=== PATIENT | female | born 1995 | race Caucasian/White ===

== ENCOUNTER 2016-12-28 10:10 | Outpatient (CLI) | payer OTHER ==
[~2016-12-28] VITALS: Ht 162.6 cm; Wt 87.2 kg
[2016-12-28 10:45] VITALS: BP 149/83; PULSE 85; Ht 162.6 cm; Wt 87.2 kg
[2016-12-28] MEDS ORDERED: FERR325C PO (10:46)
[2016-12-28] MEDS ORDERED: PRENAT PO (10:46)
[2016-12-28 11:39] LABS: ADD UMIC YES; UR ASCORBIC ACID 40 mg/dL (NEGATIVE); UR BACTERIA FEW /HPF (NONE SEEN); UR BILIRUBIN (Dip) NEGATIVE (NEGATIVE); UR BLOOD (Dip) NEGATIVE (NEGATIVE); UR CLARITY CLEAR (CLEAR); UR COLOR YELLOW (YELLOW); UR GLUCOSE (Dip) NEGATIVE (NEGATIVE); UR KETONES (Dip) NEGATIVE (NEGATIVE); UR LEUKOCYTE ESTERASE (Dip) 1+ Leu/ul (NEGATIVE); UR MUCUS FEW /HPF (NONE SEEN); UR NITRITE (Dip) NEGATIVE (NEGATIVE); UR RBC 1 /HPF (0-5); UR SPECIFIC GRAVITY (Dip) 1.017 (1.003-1.030); UR SQUAMOUS EPITHELIAL CELL FEW /HPF (FEW); UR TOTAL PROTEIN (Dip) 1+ mg/dl (NEGATIVE); UR UROBILINOGEN (Dip) NEGATIVE (NEGATIVE)
--- NOTE | 2016-12-28 13:02 | RADRPT ---
PROCEDURE: OB ultrasound for biophysical profile CLINICAL INDICATION: Labor TECHNIQUE: Multiple sonographic images of the pelvis were obtained. Transabdominal view of the gr avid uterus are available for review. The images were reviewed on a PACS workstation. COMPARISON: OB ultrasound 10/18/2016 FINDINGS: breathing movement = 2/2 tone = 2/2 motion = 2/2 REMEDIOS = 2/2 REMEDIOS = 16.4 cm Single live intrauterine with cardiac activity. heart rate equals 137 beats p er minute. Presentation is cephalic. The placenta is anterior, grade II. IMPRESSION: 1. Single viable intrauterine gestation. 2. Biophysical profile = 8/8. 3. REMEDIOS = 16.4 cm. RPTAT: KK .Jose Arias MD, MD Date Time Electronically viewed and signed by .Jose Arias MD, MD on 12/28/2016 13:01 .B/
[2016-12-28] MEDS ORDERED: LACTATED RINGER'S 1,000 ML IV SCH (14:40)
[2016-12-28 14:42] LABS: BARBITURATES Negative (NEGATIVE); BENZODIAZEPINES Negative (NEGATIVE); CANNABINOIDS Negative (NEGATIVE); COCAINE Negative (NEGATIVE); OPIATES Negative (NEGATIVE)
--- NOTE | 2016-12-28 14:49 | CONS ---
Date/Time of Note Date/Time of Note DATE: 12/28/16 TIME: 14:35 Consultation Date/Type/Reason Admit Date/Time Dec 28, 2016 at 14:30 OB triage consult Reason for Consultation . This patient is a 21 years old 1 para 0 with estimated date of confinement of December 08, 2016 which makes her 38 weeks and 3 days today. She came to triage complaining of lower abdominal pain and something popped in her genital area! this morning. On examination she is a well-developed well-nourished lady at term her abdomen is soft she does have contractions heart tones normal. On pelvic exam cervix was about 1 cm dilated 70% effaced -2 station intact membranes. Her vital signs are basically within normal limits with her blood pressure first 149/83 and then 135/74, pulse rate 88, respiration 18, temperature 97.9. Laboratory Tests Test 12/28/16 10:50 Urine Color YELLOW Urine Clarity CLEAR Urine pH 7.0 Urine Specific [place] 1.017 Urine Ketones NEGATIVEmg/dL Urine Nitrite NEGATIVEmg/dL Urine Bilirubin NEGATIVEmg/dL Urine Urobilinogen NEGATIVEmg/dL Urine Leukocyte Esterase 1+[place]/ul Urine Microscopic RBC 1/HPF Urine Microscopic WBC 3/HPF Urine Squamous Epithelial Cells FEW/HPF Urine Bacteria FEW/HPF Urine Mucus FEW/HPF Urine Hemoglobin NEGATIVEmg/dL Urine Glucose NEGATIVEmg/dL Urine Total Protein 1+mg/dl Constitutional: No chills, No diaphoresis, No disoriented, No febrile, No improved, No no complaints, No other, No poor po, No requiring IVF, No requiring O2 Eyes: No discharge, No no complaints, No other, No pain, No redness, No visual change ENT: No bleeding, No congestion, No discharge, No dysphagia, No no complaints, No other, No pain, No sore throat Respiratory: No cough, No no complaints, No other, No pain, No pleuritic pain, No shortness of breath, No sputum, No wheezing Cardiovascular: No chest pain, No edema, No lightheadedness, No no complaints, No orthopenea, No other, No palpitations, No paroxysmal nocturnal dyspnea Gastrointestinal: other (On examination her external genitalia appears to be normal on vaginal exam as I mentioned her cervix was 1 cm 70% effaced -2 station with intact membranes), No blood, No constipation, No decreased appetite, No diarrhea, No flatus, No nausea, No no complaints, No pain, No passing stool, No vomiting Genitourinary: No bleeding, No discharge, No dysuria, No flank pain, No hematuria, No no complaints, No other Musculoskeletal: No back pain, No bone/joint pain, No neck pain, No no complaints, No other, No restricted range of motion, No swelling Skin: No bruising, No erythema, No laceration, No no complaints, No other, No pruritis, No rash, No skin lesions Additional Comments On ultrasound study the report is single live intrauterine with cardiac activity of 137 bpm vertex presentation her biophysical profile is 8/8 with REMEDIOS of 16.4 ,Due to continuation of current fairly regular contractions we will transfer her to labor delivery room and if the contractions become truly labor we will keep her in the hospital otherwise will not discharge her home Social History Smoking Status: Never smoker Exam/Review of Systems Vital Signs Vitals Vital Signs Date Time Temp Pulse Resp B/P Pulse Ox O2 Delivery O2 Flow Rate FiO2 12/28/16 10:45 97.9 85 149/83 Results Results 24 hrs Laboratory Tests Test 12/28/16 10:50 Urine Color YELLOW Urine Clarity CLEAR Urine pH 7.0 Urine Specific [place] 1.017 Urine Ketones NEGATIVE Urine Nitrite NEGATIVE Urine Bilirubin NEGATIVE Urine Urobilinogen NEGATIVE Urine Leukocyte Esterase 1+ H Urine Microscopic RBC 1 Urine Microscopic WBC 3 Urine Squamous Epithelial Cells FEW Urine Bacteria FEW A Urine Mucus FEW A Urine Hemoglobin NEGATIVE Urine Glucose NEGATIVE Urine Total Protein 1+ H STEPHAN HUTTON MD Dec 28, 2016 14:45
[2016-12-28] MEDS ORDERED: OXYTOCIN 30 UNITS/LR 500 ML IV SCH ×2 (15:00)
[2016-12-28] MEDS ORDERED: CARBOPROST 250 MCG INJ IM PRN (15:00)
[2016-12-28] MEDS ORDERED: BUTORPHANOL 2 MG INJ IV PRN ×2 (15:00)
[2016-12-28] MEDS ORDERED: LIDOCAINE 1% (MPF) 30 ML INJ INJ PRN (15:00)
[2016-12-28] MEDS ORDERED: METHYLERGONOVINE 0.2 MG INJ IM PRN (15:00)
[2016-12-28] MEDS ORDERED: LACTATED RINGER'S 1,000 ML IV PRN (15:00)
[2016-12-28] MEDS ORDERED: OXYTOCIN 30 UNITS/LR 500 ML IV PRN (15:00)
[2016-12-28] MEDS ORDERED: MISOPROSTOL 200 MCG TAB PR PRN (15:00)
[2016-12-28 15:49] LABS: BASOPHILS % 0.2 % (0.0-2.0); EOSINOPHILS # 0.3 10^3/ul (0.0-0.5); HEMOGLOBIN 10.6 g/dl (12.0-16.0); LYMPHOCYTES # 2.2 10^3/ul (0.8-2.9); LYMPHOCYTES % 21.9 % (15.0-51.0); MEAN CORPUSCULAR HEMOGLOBIN 24.6 pg (29.0-33.0); MEAN CORPUSCULAR HGB CONC 32.1 g/dl (32.0-37.0); MEAN CORPUSCULAR VOLUME 76.6 fl (82.0-101.0); MEAN PLATELET VOLUME 11.2 fl (7.4-10.4); MONOCYTE # 0.5 10^3/ul (0.3-0.9); MONOCYTES % 5.3 % (0.0-11.0); PLATELET COUNT 241 10^3/UL (140-415); RED BLOOD COUNT 4.31 10^6/ul (4.20-5.40); RED CELL DISTRIBUTION WIDTH 16.1 % (11.5-14.5); WHITE BLOOD COUNT 10.2 10^3/ul (4.8-10.8)
[2016-12-28 16:03] LABS: INR 0.87; PROTIME 11.8 Sec (12.2-14.2); PT RATIO 0.9
[2016-12-28 16:04] LABS: PARTIAL THROMBOPLASTIN TIME 24.3 Sec (25.0-35.0)
[2016-12-28 16:09] LABS: ALANINE AMINOTRANSFERASE 23 IU/L (13-69); ALBUMIN 3.2 g/dl (3.3-4.9); ALKALINE PHOSPHATASE 204 IU/L (42-121); ANION GAP 10 (8-16); ASPARTATE AMINO TRANSFERASE 24 IU/L (15-46); BILIRUBIN,INDIRECT 0.1 mg/dl (0-1.1); BILIRUBIN,TOTAL 0.1 mg/dl (0.2-1.3); BLOOD UREA NITROGEN 5 mg/dl (7-20); CALCIUM 8.7 mg/dl (8.4-10.2); CARBON DIOXIDE 22 mmol/L (21-31); CHLORIDE 108 mmol/L (97-110); CREATININE 0.44 mg/dl (0.44-1.00); GLUCOSE 66 mg/dl (70-220); POTASSIUM 4.1 mmol/L (3.5-5.1); SODIUM 136 mmol/L (135-144); TOTAL PROTEIN 6.4 g/dl (6.1-8.1)
[2016-12-28 16:48] LABS: ALBUMIN 3.4 g/dl (3.3-4.9); BILIRUBIN,INDIRECT 0.1 mg/dl (0-1.1); BILIRUBIN,TOTAL 0.1 mg/dl (0.2-1.3); TOTAL PROTEIN 6.7 g/dl (6.1-8.1)
--- NOTE | 2016-12-28 22:18 | DS ---
Date/Time of Note Date/Time of Note DATE: 12/28/16 TIME: 22:12 Obstetrical Discharge Record Final Diagnosis Final Diagnosis: Term not delivered Other Final Diagnosis IIUP 38w3 Latent phase Complications Augmentation: No Induction: No Rupture of Membranes: No Condition on Discharge Physical Assessment Last Vitals: vss afebrile \ U.C 3-5 min Cx 1/long /-2 patient was kept almost 10hrs no cervical change nosignificant uterine activities patient requested to go home and come back Plan allowed her to home RTH prn with routine labor instructions Calf Tenderness: No Patient Condition: Stable MEL SALDAÑA MD Dec 28, 2016 22:18
== END 2016-12-28 20:50 | disposition home or self-care (01) ==
LOC: OBT 10:10 → L-D 10:10 → UNDOADMOB 14:30 → INTOOBSV 14:30 → OBT 14:32 → L-D 14:43
PROVIDERS: ATTEND Obstetrics & Gynecology
DX: O47.1 False labor at or after 37 completed weeks of gestation (principal); Z3A.38 38 weeks gestation of pregnancy
CPT/HCPCS: 76818; 80053; 80076; 80307; 81001; 84560; 85025; 85610; 85730; 86592; 86900; 86901; 87340; J7120; Z7500; G0463; J2590

== ENCOUNTER 2016-12-29 22:03 | Outpatient (CLI) | payer OTHER ==
[~2016-12-29 22:03] MED LIST: FERR325C PO; PRENAT PO
[2016-12-29 22:47] LABS: BASOPHILS % 0.1 % (0.0-2.0); EOSINOPHILS # 0.2 10^3/ul (0.0-0.5); EOSINOPHILS % 2.1 % (0.0-7.0); HEMATOCRIT 29.4 % (37.0-47.0); HEMOGLOBIN 9.3 g/dl (12.0-16.0); LYMPHOCYTES # 1.6 10^3/ul (0.8-2.9); LYMPHOCYTES % 18.7 % (15.0-51.0); MEAN CORPUSCULAR HEMOGLOBIN 24.1 pg (29.0-33.0); MEAN CORPUSCULAR HGB CONC 31.6 g/dl (32.0-37.0); MEAN CORPUSCULAR VOLUME 76.2 fl (82.0-101.0); MEAN PLATELET VOLUME 10.2 fl (7.4-10.4); MONOCYTE # 0.6 10^3/ul (0.3-0.9); MONOCYTES % 7.1 % (0.0-11.0); NEUTROPHILS % 71.4 % (39.0-77.0); PLATELET COUNT 204 10^3/UL (140-415); RED BLOOD COUNT 3.86 10^6/ul (4.20-5.40); WHITE BLOOD COUNT 8.5 10^3/ul (4.8-10.8)
[2016-12-29 23:02] LABS: INR 0.96; PROTIME 12.8 Sec (12.2-14.2)
[2016-12-29 23:03] LABS: PARTIAL THROMBOPLASTIN TIME 24.8 Sec (25.0-35.0)
[2016-12-29 23:05] LABS: ALBUMIN 2.9 g/dl (3.3-4.9); ALBUMIN/GLOBULIN RATIO 0.96; CALCIUM 8.5 mg/dl (8.4-10.2); CREATININE 0.54 mg/dl (0.44-1.00); POTASSIUM 3.7 mmol/L (3.5-5.1); TOTAL PROTEIN 5.9 g/dl (6.1-8.1); URIC ACID 5.4 mg/dl (3.1-7.9)
[2016-12-29 23:54] LABS: SCRET 0.44 mg/dl (0.44-1.00)
--- NOTE | 2016-12-30 00:34 | TRIAGE ---
OB Triage Datetime Report Generated by CPN: 12/30/2016 00:34 Datetime: 12/30/2016 00:10 Stage of : OB Triage Datetime: 12/29/2016 23:54 Labor Evaluation Frequency: 0 Monitor Mode: External Quality: Mild Pattern: Normal: <= 5 Contractions in 10 Minutes Resting Tone [place]: Relaxed Heart Rate FHR Baseline Rate: 150 Monitor Mode: External US Variability: Moderate 6-25 bpm Accelerations: 15X15 Category: Category I Datetime: 12/29/2016 23:00 Monitor Mode: External Heart Rate FHR Baseline Rate: 150 Monitor Mode: External US Datetime: 12/29/2016 22:30 Assessment Type: Triage Vaginal Bleeding: None Maternal Assessment Level of Consciousness: Fully Conscious DTR's/Clonus: DTRs 2+; No Clonus Headache: Denies Blurred Vision: No Respiratory Effort: Unlabored; Regular Rhythm; Equal Expansion Breath Sounds, Left: Clear and Equal Breath Sounds, Right: Clear and Equal Nausea/Vomiting: Denies RUQ Epigastric Pain: Denies Facial Edema: None Fall Risk Assessment History of Falling: (0) No Secondary Diagnosis: (0) No Ambulatory Aid: (0) Bedrest/Nurse Assist Gait: (0) Normal/Bedrest/Immobile Mental Status: (0) Oriented to Own Ability Monitor Mode: External Pattern: Normal: <= 5 Contractions in 10 Minutes Resting Tone [place]: Relaxed Heart Rate FHR Baseline Rate: 125 Monitor Mode: External US Variability: Moderate 6-25 bpm Accelerations: 10X10 Decelerations: None Category: Category I Pain Assessment Pain Scale: 0 Datetime: 12/29/2016 22:18 Monitor Mode: External Contraction Comments: applied Monitor Mode: External US Comments: Applied Datetime: 12/29/2016 21:18 Time of Arrival: 12/29/2016 21:18 EGA: 38.4 Arrived By: Ambulatory Arrived From: Home Chief Complaint: Brought in her urine for 24 hour Protein and Creatinine clearance Movement: Present Contractions: Denies/Absent Rupture of Membranes: Denies Vaginal Bleeding: None Vaginal Discharge: Denies Recent Sexual Intercouse: Denies Abdominal Trauma: Not Applicable Patient Complaints: None Additional Patient Complaints: Urine specimen and PIH Labs sent to lab Time Provider Notified: 12/29/2016 23:53 Datetime: 12/28/2016 20:00 Labor Evaluation Frequency: 2.5-7 Monitor Mode: External Duration (sec)2399: 60-140 Quality: Mild Pattern: Normal: <= 5 Contractions in 10 Minutes Resting Tone [place]: Relaxed Heart Rate FHR Baseline Rate: 140 Monitor Mode: External US Variability: Moderate 6-25 bpm Accelerations: 15X15 Decelerations: None Category: Category I Datetime: 12/28/2016 19:33 Assessment Type: Ongoing Assessment Maternal Assessment Level of Consciousness: Fully Conscious DTR's/Clonus: DTRs 2+; No Clonus Headache: Denies Blurred Vision: No Respiratory Effort: Unlabored; Regular Rhythm; Equal Expansion Breath Sounds, Left: Clear and Equal Breath Sounds, Right: Clear and Equal Nausea/Vomiting: Denies RUQ Epigastric Pain: Denies Lower Extremities Edema: Bilateral Lower Extremities Degree: 1+ Upper Extremities Edema: None Degree: None Facial Edema: None Pain Assessment Pain Scale: 1 Pain Presence: Intermittent Pain Type: Contraction Pain Location: Abdomen Pain Goal: 2 Pain Relief Measures: Comfort Measures Vaginal Exam Dilatation (cms): 1.0 Effacement (%): 60 Station: -2 Datetime: 12/28/2016 19:10 Labor Evaluation Frequency: 5-6 Monitor Mode: External Duration (sec)2399: 120 Quality: Mild Pattern: Normal: <= 5 Contractions in 10 Minutes Resting Tone [place]: Relaxed Heart Rate FHR Baseline Rate: 150 Monitor Mode: External US FHR Baseline Changes: No Baseline Change Variability: Moderate 6-25 bpm Decelerations: None Category: Category I Pain Assessment Pain Scale: 2 Pain Presence: Intermittent Pain Type: Contraction Pain Location: Abdomen; Back Pain Relief Measures: Comfort Measures Datetime: 12/28/2016 19:00 Assessment Type: Ongoing Assessment Datetime: 12/28/2016 18:10 Labor Evaluation Frequency: 5-6 Monitor Mode: External Duration (sec)2399: 100-120 Quality: Mild Pattern: Normal: <= 5 Contractions in 10 Minutes Resting Tone [place]: Relaxed Heart Rate FHR Baseline Rate: 140 Monitor Mode: External US FHR Baseline Changes: No Baseline Change Variability: Minimal - Undetectable to <=5 bpm Accelerations: 15X15 Decelerations: None Category: Category II Datetime: 12/28/2016 17:30 Labor Evaluation Frequency: 5-6 Monitor Mode: External Duration (sec)2399: 100-120 Quality: Mild Pattern: Normal: <= 5 Contractions in 10 Minutes Resting Tone [place]: Relaxed Heart Rate FHR Baseline Rate: 150 Monitor Mode: External US FHR Baseline Changes: No Baseline Change Variability: Moderate 6-25 bpm Accelerations: 15X15 Decelerations: None Category: Category I Pain Assessment Pain Scale: 5 Pain Presence: Intermittent Pain Type: Contraction Pain Location: Abdomen; Back Pain Relief Measures: Comfort Measures Membrane Status: Intact Datetime: 12/28/2016 16:27 Labor Evaluation Frequency: 2-4 Monitor Mode: External Duration (sec)2399: 70-120 Quality: Moderate Pattern: Normal: <= 5 Contractions in 10 Minutes Resting Tone [place]: Relaxed Heart Rate FHR Baseline Rate: 140 Monitor Mode: External US FHR Baseline Changes: No Baseline Change Variability: Moderate 6-25 bpm Accelerations: 15X15 Decelerations: None Category: Category I Pain Assessment Pain Scale: 4 Pain Presence: Intermittent Pain Type: Contraction Pain Location: Abdomen; Back Pain Relief Measures: Comfort Measures Datetime: 12/28/2016 15:46 Labor Evaluation Frequency: 2-3 Monitor Mode: External Duration (sec)2399: 80-120 Quality: Mild Pattern: Normal: <= 5 Contractions in 10 Minutes Resting Tone [place]: Relaxed Heart Rate FHR Baseline Rate: 140 Monitor Mode: External US FHR Baseline Changes: No Baseline Change Variability: Moderate 6-25 bpm Category: Category I Pain Assessment Pain Scale: 5 Pain Presence: Intermittent Pain Type: Cramping; Contraction Pain Location: Abdomen; Back Pain Relief Measures: Comfort Measures Pain Assessment Comments: HER MOTHER AND HER SISTER Datetime: 12/28/2016 14:57 Assessment Type: Admission Assessment Vaginal Bleeding: None Maternal Assessment Level of Consciousness: Fully Conscious DTR's/Clonus: DTRs 2+; No Clonus Headache: Denies Blurred Vision: No Respiratory Effort: Unlabored; Regular Rhythm; Equal Expansion Breath Sounds, Left: Clear and Equal Breath Sounds, Right: Clear and Equal Nausea/Vomiting: Denies RUQ Epigastric Pain: Denies Lower Extremities Edema: Bilateral Lower Extremities Degree: 1+ Upper Extremities Edema: Bilateral Upper Extremities Degree: 1+ Facial Edema: None Fall Risk Assessment History of Falling: (0) No Secondary Diagnosis: (0) No Ambulatory Aid: (0) Bedrest/Nurse Assist IV Therapy: (0) No Gait: (0) Normal/Bedrest/Immobile Mental Status: (0) Oriented to Own Ability Fall Score: 0 Fall Risk Score Definition: No Risk: No action required Labor Evaluation Frequency: 3-5 Duration (sec)2399: 60-80 Quality: Mild Pattern: Normal: <= 5 Contractions in 10 Minutes Resting Tone [place]: Relaxed Pain Assessment Pain Scale: 5 Pain Presence: Intermittent Pain Type: Cramping Pain Location: Abdomen; Back Pain Goal: 7 Vaginal Exam Dilatation (cms): 1.0 Effacement (%): 60 Station: -2 Membrane Status: Intact Datetime: 12/28/2016 14:54 Time of Arrival: 12/28/2016 14:54 EGA: 38.3 Arrived By: Ambulatory Arrived From: TRIAGE Datetime: 12/28/2016 14:26 Stage of : OB Triage Datetime: 12/28/2016 13:44 Labor Evaluation Frequency: 5 Monitor Mode: External Duration (sec)2399: 60-80 Quality: Mild Pattern: Normal: <= 5 Contractions in 10 Minutes Resting Tone [place]: Relaxed Monitor Mode: External US FHR Baseline Changes: No Baseline Change Variability: Minimal - Undetectable to <=5 bpm Category: Category II Pain Assessment Pain Scale: 5 Pain Presence: Intermittent Pain Type: Cramping Pain Location: Abdomen; Back Pain Relief Measures: Comfort Measures Vaginal Exam Dilatation (cms): 1.0 Effacement (%): 60 Station: -2 Exam By: PS Membrane Status: Intact Vaginal Bleeding: None Cervix, Consistency: Moderate Cervix, Position: Posterior Presentation 'A': Cephalic Lie 'A': Longitudinal Datetime: 12/28/2016 12:39 Labor Evaluation Frequency: 2-4 Monitor Mode: External Duration (sec)2399: 60 Quality: Mild Pattern: Normal: <= 5 Contractions in 10 Minutes Resting Tone [place]: Relaxed Heart Rate FHR Baseline Rate: 140 Monitor Mode: External US FHR Baseline Changes: No Baseline Change Variability: Moderate 6-25 bpm Decelerations: None Category: Category I Pain Assessment Pain Scale: 5 Pain Presence: Intermittent Pain Type: Cramping Pain Location: Abdomen Pain Relief Measures: Comfort Measures Datetime: 12/28/2016 11:40 Stage of : OB Triage Datetime: 12/28/2016 11:37 Labor Evaluation Frequency: 2-3 Monitor Mode: External Duration (sec)2399: 40-50 Quality: Mild Pattern: Normal: <= 5 Contractions in 10 Minutes Resting Tone [place]: Relaxed Heart Rate FHR Baseline Rate: 145 Monitor Mode: External US Variability: Moderate 6-25 bpm Accelerations: 10X10 Decelerations: None Category: Category I Pain Assessment Pain Scale: 5 Pain Presence: Intermittent Pain Type: Cramping Pain Location: Abdomen Pain Goal: 3 Pain Relief Measures: Comfort Measures Datetime: 12/28/2016 10:45 Vaginal Exam Dilatation (cms): 1.0 Effacement (%): 70 Station: -2 Exam By: s shiela Vaginal Bleeding: None Cervix, Consistency: Soft Cervix, Position: Posterior Presentation 'A': Cephalic Datetime: 12/28/2016 10:40 Stage of : OB Triage Assessment Type: Triage EGA: 38.3 Maternal Assessment Level of Consciousness: Fully Conscious DTR's/Clonus: DTRs 2+; No Clonus Headache: Denies Blurred Vision: No Respiratory Effort: Unlabored; Regular Rhythm; Equal Expansion Breath Sounds, Left: Clear and Equal Breath Sounds, Right: Clear and Equal Nausea/Vomiting: Denies RUQ Epigastric Pain: Denies Facial Edema: None Temperature Route: Axillary Fall Risk Assessment History of Falling: (0) No Secondary Diagnosis: (0) No Ambulatory Aid: (0) Bedrest/Nurse Assist IV Therapy: (0) No Gait: (0) Normal/Bedrest/Immobile Mental Status: (0) Oriented to Own Ability Fall Score: 0 Fall Risk Score Definition: No Risk: No action required Labor Evaluation Frequency: 3-5 Monitor Mode: External Duration (sec)2399: 50-70 Quality: Mild Pattern: Normal: <= 5 Contractions in 10 Minutes Resting Tone [place]: Relaxed Heart Rate FHR Baseline Rate: 145 Monitor Mode: External US Variability: Moderate 6-25 bpm Accelerations: None Decelerations: None Category: Category I Pain Assessment Pain Scale: 5 Pain Presence: Intermittent Pain Type: Cramping Pain Location: Abdomen Pain Goal: 3 Pain Relief Measures: Comfort Measures Datetime: 12/28/2016 10:38 Time of Arrival: 12/28/2016 10:00 Arrived By: Ambulatory Arrived From: Home Chief Complaint: C/O HEARING POP WHEN IN SHOWER, DID NOT NOTICE ANY LEAKING OF FLUID OR BLEEDING Movement: Present Contractions: Denies/Absent Rupture of Membranes: Denies Vaginal Bleeding: None Vaginal Discharge: Denies Recent Sexual Intercouse: Denies Abdominal Trauma: Not Applicable Patient Complaints: Cramping Time Provider Notified: 12/28/2016 11:40 Provider Notified: BRENNEN Initial Plan: MONITOR, URINALYSIS, BPP, OBS X 2 HOURS
--- NOTE | 2016-12-30 00:45 | PN ---
Triage Information Date/Time Reason for visit: Weeks of Gestation 38w 4d /Para Hypertention: induced Objective Heart Rate Comments reactive Contractions: None Results/Medications Result Diagram: 12/29/16222912/29/162229 Results 24 hrs Laboratory Tests Test 12/29/16 21:15 12/29/16 22:30 Urine Random Creatinine 93.89 Urine Collection Duration 24 Urine Total Volume 24 Hours 700 Urine Creatinine Timed 24 Creatinine Clearance 103.7 Urine Total Volume (Protein) 700 Urine Total Protein 24 Hour 63.0 White Blood Count 8.5 Red Blood Count 3.86 L Hemoglobin 9.3 L Hematocrit 29.4 L Mean Corpuscular Volume 76.2 L Mean Corpuscular Hemoglobin 24.1 L Mean Corpuscular Hemoglobin Concent 31.6 L Red Cell Distribution Width 16.0 H Platelet Count 204 Mean Platelet Volume 10.2 Neutrophils % 71.4 Lymphocytes % 18.7 Monocytes % 7.1 Eosinophils % 2.1 Basophils % 0.1 Nucleated Red Blood Cells % 0.0 Neutrophils # (Manual) 6.1 Lymphocytes # 1.6 Monocytes # 0.6 Eosinophils # 0.2 Basophils # 0.0 Nucleated Red Blood Cells # 0.0 Prothrombin Time 12.8 Prothrombin Time Ratio 1.0 INR International Normalized Ratio 0.96 Activated Partial Thromboplast Time 24.8 L Fibrinogen 538.0 H Sodium Level 138 Potassium Level 3.7 Chloride Level 110 Carbon Dioxide Level 21 Anion Gap 11 Blood Urea Nitrogen 10 Creatinine 0.54 Glucose Level 103 Uric Acid 5.4 Calcium Level 8.5 Total Bilirubin 0.0 L Direct Bilirubin 0.00 Indirect Bilirubin 0.0 Aspartate Amino Transf (AST/SGOT) 18 Alanine Aminotransferase (ALT/SGPT) 24 Alkaline Phosphatase 169 H Total Protein 5.9 L Albumin 2.9 L Globulin 3.00 Albumin/Globulin Ratio 0.96 Disposition: Discharge Assessment/Plan 21 y/o at 38w 4d with moderately elevated BPs -24 hour urine and labs normal -discharge home with preeclampsia and labor precautions -f/u in clinic early next week -discussed possible induction for gestational htn LEONIE PARISI Dec 30, 2016 00:45
== END 2016-12-30 00:18 | disposition home or self-care (01) ==
LOC: OBT 22:03 → L-D 22:04 → OBT 12-30 00:18
PROVIDERS: ATTEND Obstetrics & Gynecology
DX: O13.3 Gestational [pregnancy-induced] hypertension without significant proteinuria, third trimester (principal); Z3A.38 38 weeks gestation of pregnancy
CPT/HCPCS: 80053; 82575; 84156; 84560; 85025; 85384; 85610; 85730; G0463

== ENCOUNTER 2017-01-08 14:14 | Inpatient (IN) | payer OTHER ==
[~2017-01-08] VITALS: Ht 162.6 cm; Wt 88.5 kg
[2017-01-08 14:50] VITALS: Ht 162.6 cm; Wt 88.5 kg
[2017-01-08 14:51] VITALS: BP 135/75; PULSE 99
[2017-01-08] MEDS ORDERED: OXYTOCIN 30 UNITS/LR 500 ML IV SCH ×2 (15:30)
[2017-01-08] MEDS ORDERED: BUTORPHANOL 2 MG INJ IV PRN ×2 (15:30)
[2017-01-08] MEDS ORDERED: MISOPROSTOL 200 MCG TAB PR PRN (15:30)
[2017-01-08] MEDS ORDERED: LACTATED RINGER'S 1,000 ML IV PRN (15:30)
[2017-01-08] MEDS ORDERED: METHYLERGONOVINE 0.2 MG INJ IM PRN (15:30)
[2017-01-08] MEDS ORDERED: OXYTOCIN 30 UNITS/LR 500 ML IV PRN (15:30)
[2017-01-08] MEDS ORDERED: CARBOPROST 250 MCG INJ IM PRN (15:30)
[2017-01-08] MEDS ORDERED: LIDOCAINE 1% (MPF) 30 ML INJ INJ PRN (15:30)
[2017-01-08] MEDS: LACTATED RINGER'S 1,000 ML IV SCH ×2 (15:42→23:04)
[2017-01-08 17:44] LABS: BASOPHILS % 0.2 % (0.0-2.0); EOSINOPHILS # 0.2 10^3/ul (0.0-0.5); EOSINOPHILS % 1.7 % (0.0-7.0); HEMATOCRIT 33.5 % (37.0-47.0); HEMOGLOBIN 10.8 g/dl (12.0-16.0); LYMPHOCYTES # 1.5 10^3/ul (0.8-2.9); LYMPHOCYTES % 13.9 % (15.0-51.0); MEAN CORPUSCULAR HEMOGLOBIN 24.5 pg (29.0-33.0); MEAN CORPUSCULAR HGB CONC 32.2 g/dl (32.0-37.0); MEAN CORPUSCULAR VOLUME 76.1 fl (82.0-101.0); MONOCYTE # 0.7 10^3/ul (0.3-0.9); MONOCYTES % 6.1 % (0.0-11.0); NEUTROPHIL # 8.2 10^3/ul (1.6-7.5); NEUTROPHILS % 76.9 % (39.0-77.0); PLATELET COUNT 238 10^3/UL (140-415); RED CELL DISTRIBUTION WIDTH 16.8 % (11.5-14.5); WHITE BLOOD COUNT 10.7 10^3/ul (4.8-10.8)
[2017-01-08 17:58] LABS: INR 0.87; PROTIME 11.8 Sec (12.2-14.2); PT RATIO 0.9
[2017-01-08 17:59] LABS: PARTIAL THROMBOPLASTIN TIME 25.5 Sec (25.0-35.0)
[2017-01-08 19:00] LABS: ALBUMIN 3.3 g/dl (3.3-4.9); CALCIUM 9.2 mg/dl (8.4-10.2); CREATININE 0.5 mg/dl (0.44-1.00); PHOSPHORUS 5.2 mg/dl (2.5-4.9); POTASSIUM 4.3 mmol/L (3.5-5.1); TOTAL PROTEIN 6.7 g/dl (6.1-8.1); URIC ACID 5.8 mg/dl (3.1-7.9)
[2017-01-09] MEDS ORDERED: OXYTOCIN 30 UNITS/LR 500 ML IV SCH (00:30)
[2017-01-09] MEDS ORDERED: ALBUTEROL 18 GM INHALER INH ONE (00:30)
[2017-01-09] MEDS ORDERED: AMPICILLIN 2 GM/NS (PMX) 100 ML IVPB ONE (00:30)
[2017-01-09 01:22] LABS: ADD UMIC YES; UR ASCORBIC ACID NEGATIVE (NEGATIVE); UR BILIRUBIN (Dip) NEGATIVE (NEGATIVE); UR BLOOD (Dip) 2+ mg/dL (NEGATIVE); UR CLARITY CLEAR (CLEAR); UR COLOR YELLOW (YELLOW); UR GLUCOSE (Dip) NEGATIVE (NEGATIVE); UR KETONES (Dip) 1+ mg/dL (NEGATIVE); UR LEUKOCYTE ESTERASE (Dip) NEGATIVE Leu/ul (NEGATIVE); UR NITRITE (Dip) NEGATIVE (NEGATIVE); UR RBC 17 /HPF (0-5); UR SPECIFIC GRAVITY (Dip) 1.017 (1.003-1.030); UR TOTAL PROTEIN (Dip) 2+ mg/dl (NEGATIVE); UR UROBILINOGEN (Dip) NEGATIVE (NEGATIVE)
[2017-01-09 01:33] LABS: BARBITURATES Negative (NEGATIVE); BENZODIAZEPINES Negative (NEGATIVE); CANNABINOIDS Negative (NEGATIVE); COCAINE Negative (NEGATIVE); OPIATES Negative (NEGATIVE)
[2017-01-09] MEDS ORDERED: FENTAnyl 2MCG/ML-ROPIV 0.2% 100 ML ONE (03:05)
[2017-01-09] MEDS ORDERED: NALOXONE (0.4 MG/ML) INJ IV PRN ×2 (03:30→10:30)
[2017-01-09] MEDS ORDERED: FENTAnyl 2MCG/ML-ROPIV 0.2% 100 ML BAG EPI SCH (03:30)
[2017-01-09] MEDS: LACTATED RINGER'S 1,000 ML IV SCH ×2 (03:37→16:20)
[2017-01-09] MEDS ORDERED: AMPICILLIN 1 GM/NS (PMX) 50 ML IVPB SCH (04:00)
[2017-01-09] MEDS: AMPICILLIN 1 GM/NS (PMX) 50 ML IVPB SCH ×2 (04:40→08:59)
[2017-01-09] MEDS ORDERED: ONDANSETRON 4 MG INJ IV PRN ×3 (06:30→10:30)
[2017-01-09] MEDS ORDERED: OXYTOCIN 30 UNITS/LR 500 ML BAG IV ONE (07:00)
[2017-01-09] MEDS ORDERED: CEFAZOLIN 2 GM/50 ML (PMX) 50 ML IVPB ONE (09:35)
[2017-01-09] MEDS ORDERED: CITRIC ACID/NA CITRATE 30 ML CUP ONE (09:40)
[2017-01-09] MEDS ORDERED: FAMOTIDINE 20 MG INJ ONE (09:40)
[2017-01-09] MEDS ORDERED: METOCLOPRAMIDE 10 MG INJ ONE (09:41)
--- NOTE | 2017-01-09 09:53 | PREOPHP ---
DATE OF ADMISSION: 01/08/2017 HISTORY OF PRESENT ILLNESS: A 21-year-old female, 1 para 0, estimated date of delivery January 08, 2017 at 40 weeks' gestation, presented with spontaneous rupture of membranes. PAST MEDICAL HISTORY: Asthma. PAST SURGICAL HISTORY: Unremarkable. ALLERGIES: NO KNOWN ALLERGIES. FAMILY HISTORY: Noncontributory. PHYSICAL EXAMINATION: VITAL SIGNS: Patient is afebrile. Vital signs stable. HEAD AND NECK: Within normal limits. CHEST: Within normal limits. ABDOMEN: Soft, nontender, and gravid. EXTREMITIES: Within normal limits. NEUROLOGIC: Within normal limits. HOSPITAL COURSE: Patient was admitted with spontaneous rupture of membranes. Patient was given oxytocin for augmentation of labor. Patient has progressed to 3 cm dilation. On external monitoring there is absent variability of the heart rate and there are late decelerations. Oxytocin was discontinued, oxygen via mask was given. IV rate was increased. Patient was placed in lateral decubitus position. Patient continues to have a nonreassuring heart tracing. Patient is for delivery by primary section. Risks, benefits, and alternatives of procedure were explained to the patient. Patient said that she understood and gave informed consent for the procedure. Dictated By: Roger Sadler MD /[email or web address]/lacho /Document#: [id number]
[2017-01-09] MEDS ORDERED: morphine SULFATE/PF (10 MG/10 ML) INJ ONE (09:54)
[2017-01-09] MEDS ORDERED: FENTAnyl 50 MCG/ML VIAL ONE (09:54)
[2017-01-09] MEDS ORDERED: SODIUM BICARBONATE (IV ADD) 50 ML ONE (09:55)
[2017-01-09] MEDS ORDERED: LIDOCAINE 2%/EPI 30 ML INJ ONE (09:55)
[2017-01-09] MEDS ORDERED: CEFAZOLIN 2 GM/50 ML (PMX) 50 ML IVPB SCH (10:00)
[2017-01-09] MEDS ORDERED: FAMOTIDINE 20 MG INJ IV ONE (10:00)
[2017-01-09] MEDS ORDERED: CITRIC ACID/NA CITRATE 30 ML CUP PO ONE (10:00)
[2017-01-09] MEDS ORDERED: METOCLOPRAMIDE 10 MG INJ IV ONE (10:00)
[2017-01-09] MEDS ORDERED: PHENYLephrine (100 MCG/ML) 5ML SYG ONE ×2 (10:29→11:03)
[2017-01-09] MEDS ORDERED: KETOROLAC 30 MG INJ IV PRN ×2 (10:30)
[2017-01-09] MEDS ORDERED: ZOLPIDEM 5 MG TAB PO PRN (10:30)
[2017-01-09] MEDS ORDERED: PROCHLORPERAZINE 10 MG INJ IV PRN (10:30)
[2017-01-09] MEDS ORDERED: FENTAnyl 50 MCG/ML VIAL IV PRN (10:30)
[2017-01-09] MEDS ORDERED: HYDROmorphONE (0.2 MG/ML) 10ML SYG IV PRN (10:30)
[2017-01-09] MEDS ORDERED: DIPHENHYDRAMINE 50 MG INJ IV PRN ×2 (10:30)
[2017-01-09] MEDS ORDERED: HYDROmorphONE 1 MG/ML SYG IV PRN ×2 (10:30)
[2017-01-09] MEDS ORDERED: MEPERIDINE 25 MG INJ IV PRN (10:30)
[2017-01-09 11:46] LABS: AADO2 Cord Arterial 68.1 mmHg; Arterial Cord Blood pCO2 59.8 mmHG (25-50); CBA Base Excess -6.8 mmol/L; CBA Total Hemglobin 15.9 g/dl; Fraction OxyHgb Cord Arterial 9.4 %; MODE ROOM AIR; MetHgb Cord Arterial 1.7 %; Sample Type CBV
[2017-01-09 11:47] LABS: CBV Base Excess -6.1 mmol/L; CBV COHb 0.5 %; CBV Oxygen Sat 30.4 mmHG; CBV Total Hemglobin 15.9 g/dl; Cord Blood Venous AADO2 74.9 mmHg; Cord Blood Venous pO2 17.5 mmHG (15.0-45.0); Fraction OxyHgb Cord Venous 29.8 %; MODE ROOM AIR; MetHgb Cord Venous 1.6 %; Sample Type CBA
--- NOTE | 2017-01-09 11:59 | SIPON ---
Date/Time of Note Date/Time of Note DATE: 01/09/17 TIME: 11:53 Operative Report Preoperative Diagnosis Term with Non-Reassuring tracing Postoperative Diagnosis Same Operation/Procedure Performed Primary Surgeon Andrew Dixon MD corporate law assistant Curly Queen MD Anesthesia: epidural Estimated blood loss: other (1200 ml) Transfusion Required none Specimen Placenta Grafts/Implants none Complications none ANDREW DIXON MD Jan 09, 2017 11:59
--- NOTE | 2017-01-09 12:33 | OPR ---
DATE OF OPERATION: 01/09/2017 PREOPERATIVE DIAGNOSIS: Nonreassuring heart tracing. POSTOPERATIVE DIAGNOSIS: Nonreassuring heart tracing. OPERATION PERFORMED: Primary low transverse section. SURGEON: Roger Sadler MD CASHIER SUPERVISOR: ANESTHESIA: Epidural. ANESTHESIOLOGIST: Dr. Claire. OPERATIVE PROCEDURE: The patient was taken to the operating room and placed on the operating table. After adequate epidural anesthesia was given the patient was placed in supine position. The area was prepared and draped in the usual sterile fashion. Epidural anesthesia was satisfactory. Using scalpel, Pfannenstiel incision was made about 2 fingerbreadths above the symphysis pubis. The incision was carried to the fascia. The fascia was incised and extended bilaterally with Byers scissors. Two Sonia's were used to separate the fascia from the muscle. The muscle was dissected down to peritoneum. The peritoneum was bluntly entered. Using a scalpel, a small transverse incision in the aponeurosis of the uterus. Upon entering the uterine cavity, bandage scissor was inserted to extend the incision bilaterally curved up. Baby was delivered from cephalic presentation. After suctioned clear of amniotic fluid of the meconium was handed off to the team in attendance. Apgars were 8 and 9. The placenta was delivered without difficulty. The uterus was closed with number 1 Monocryl continuous locked fashion with satisfactory hemostasis. Both ovaries and tubes were inspected and all looked normal. The peritoneum was closed with 2-0 Vicryl continuous suture. Fascia was closed with number 1 Vicryl continuous in 2 segments. Subcutaneous tissue was reapproximated with 2-0 plain. The skin was closed ugo. ESTIMATED BLOOD LOSS: 1200 mL. COUNTS: All counts were correct. Dictated By: Roger Sadler MD /[email or web address]/katty /Document#: [id number]
[2017-01-09 13:35] LABS: BASOPHILS % 0.2 % (0.0-2.0); HEMATOCRIT 25.6 % (37.0-47.0); HEMOGLOBIN 8.1 g/dl (12.0-16.0); LYMPHOCYTES # 1.4 10^3/ul (0.8-2.9); LYMPHOCYTES % 6.7 % (15.0-51.0); MEAN CORPUSCULAR HEMOGLOBIN 24.4 pg (29.0-33.0); MEAN CORPUSCULAR HGB CONC 31.6 g/dl (32.0-37.0); MEAN CORPUSCULAR VOLUME 77.1 fl (82.0-101.0); MEAN PLATELET VOLUME 10.2 fl (7.4-10.4); MONOCYTE # 0.9 10^3/ul (0.3-0.9); MONOCYTES % 4.5 % (0.0-11.0); NEUTROPHIL # 18.2 10^3/ul (1.6-7.5); NEUTROPHILS % 87.8 % (39.0-77.0); PLATELET COUNT 196 10^3/UL (140-415); RED BLOOD COUNT 3.32 10^6/ul (4.20-5.40); WHITE BLOOD COUNT 20.8 10^3/ul (4.8-10.8)
[2017-01-09 16:50] VITALS: BP 134/73; PULSE 93; RESP 18
[2017-01-09] MEDS ORDERED: LANOLIN 7 GM TUBE TOP PRN (17:00)
[2017-01-09] MEDS ORDERED: MISOPROSTOL 200 MCG TAB PR PRN (17:00)
[2017-01-09] MEDS ORDERED: METHYLERGONOVINE 0.2 MG INJ IM PRN (17:00)
[2017-01-09] MEDS ORDERED: CARBOPROST 250 MCG INJ IM PRN (17:00)
[2017-01-09] MEDS ORDERED: OXYTOCIN 30 UNITS/LR 500 ML IV PRN (17:00)
[2017-01-09 18:10] VITALS: BP 132/64; PULSE 99; RESP 19
[2017-01-09] MEDS: OXYTOCIN 30 UNITS/LR 500 ML IV SCH ×2 (18:28→21:00)
[2017-01-09 20:00] VITALS: BP 135/73; PULSE 94; RESP 19
[2017-01-09] MEDS: SENNA/DOCUSATE NA (8.6MG/50MG) TAB PO SCH (20:46)
[2017-01-10] VITALS: BP 131/71; PULSE 91; RESP 18
[2017-01-10] MEDS: LACTATED RINGER'S 1,000 ML IV SCH ×4 (01:00→17:00)
[2017-01-10 08:00] VITALS: BP 107/64; PULSE 68; RESP 19
[2017-01-10] MEDS: SENNA/DOCUSATE NA (8.6MG/50MG) TAB PO SCH ×2 (09:56→21:24)
[2017-01-10] MEDS ORDERED: OXYCODONE/ACETAMINOPHEN (5/325) TAB PO PRN (11:00)
[2017-01-10] MEDS: OXYCODONE/ACETAMINOPHEN (5/325) TAB PO PRN ×2 (11:12→18:04)
[2017-01-10 11:28] LABS: BASOPHILS % 0.2 % (0.0-2.0); EOSINOPHILS # 0.1 10^3/ul (0.0-0.5); EOSINOPHILS % 0.5 % (0.0-7.0); HEMATOCRIT 24.1 % (37.0-47.0); HEMOGLOBIN 7.5 g/dl (12.0-16.0); LYMPHOCYTES # 1.9 10^3/ul (0.8-2.9); LYMPHOCYTES % 12.7 % (15.0-51.0); MEAN CORPUSCULAR HEMOGLOBIN 23.9 pg (29.0-33.0); MEAN CORPUSCULAR HGB CONC 31.1 g/dl (32.0-37.0); MEAN CORPUSCULAR VOLUME 76.8 fl (82.0-101.0); MEAN PLATELET VOLUME 9.8 fl (7.4-10.4); MONOCYTE # 0.9 10^3/ul (0.3-0.9); MONOCYTES % 5.8 % (0.0-11.0); NEUTROPHIL # 11.9 10^3/ul (1.6-7.5); NEUTROPHILS % 79.7 % (39.0-77.0); PLATELET COUNT 168 10^3/UL (140-415); RED BLOOD COUNT 3.14 10^6/ul (4.20-5.40); RED CELL DISTRIBUTION WIDTH 17.6 % (11.5-14.5)
[2017-01-10] MEDS: IBUPROFEN 800 MG TAB PO SCH ×2 (14:30→21:52)
[2017-01-10 16:13] VITALS: BP 126/57; PULSE 82; RESP 19
--- NOTE | 2017-01-10 16:25 | QN ---
Documentation Comment No complaint Afebrile VSS abdomen soft ND Hgb 7.5 POD #1 Stable Ambulate Advance diet Fe supplement ANDREW DIXON MD Jan 10, 2017 16:25
[2017-01-10 20:00] VITALS: BP 111/62; PULSE 95; RESP 18
[2017-01-10] MEDS: FERROUS SULFATE (EC) 325 MG TAB PO SCH (21:24)
[2017-01-11] MEDS: LACTATED RINGER'S 1,000 ML IV SCH ×3 (01:00→17:00)
[2017-01-11 04:07] VITALS: BP 131/71; PULSE 89; RESP 18
[2017-01-11] MEDS: IBUPROFEN 800 MG TAB PO SCH ×3 (05:50→21:56)
[2017-01-11 08:00] VITALS: BP 127/67; PULSE 86; RESP 18
[2017-01-11] MEDS: SENNA/DOCUSATE NA (8.6MG/50MG) TAB PO SCH ×2 (09:23→21:56)
[2017-01-11] MEDS: FERROUS SULFATE (EC) 325 MG TAB PO SCH ×3 (09:23→21:56)
[2017-01-11 10:35] LABS: ABNORMAL IP MESSAGE 1; BASOPHILS % 0.1 % (0.0-2.0); EOSINOPHILS # 0.4 10^3/ul (0.0-0.5); EOSINOPHILS % 3.1 % (0.0-7.0); HEMATOCRIT 20.5 % (37.0-47.0); LYMPHOCYTES # 1.6 10^3/ul (0.8-2.9); LYMPHOCYTES % 12.7 % (15.0-51.0); MEAN CORPUSCULAR HEMOGLOBIN 24.2 pg (29.0-33.0); MEAN CORPUSCULAR HGB CONC 31.2 g/dl (32.0-37.0); MEAN CORPUSCULAR VOLUME 77.4 fl (82.0-101.0); MEAN PLATELET VOLUME 10.8 fl (7.4-10.4); MONOCYTE # 0.5 10^3/ul (0.3-0.9); NEUTROPHIL # 10.2 10^3/ul (1.6-7.5); NEUTROPHILS % 78.5 % (39.0-77.0); PLATELET COUNT 156 10^3/UL (140-415); RED BLOOD COUNT 2.65 10^6/ul (4.20-5.40); RED CELL DISTRIBUTION WIDTH 17.5 % (11.5-14.5)
[2017-01-11 10:39] LABS: HEMOGLOBIN 6.4 g/dl (12.0-16.0); POSITIVE DIFF @See below
--- NOTE | 2017-01-11 13:40 | QN ---
Documentation Comment pod2 pt doing well vss exam wnl a/p pod 2 continue care NAVEEN ROY MD Jan 11, 2017 13:40
[2017-01-11] MEDS: OXYCODONE/ACETAMINOPHEN (5/325) TAB PO PRN (14:28)
--- NOTE | 2017-01-11 15:18 | QN ---
Documentation Comment HH down to 6.4 will repeat HH vitals stable NAVEEN ROY MD Jan 11, 2017 15:18
[2017-01-11 15:48] LABS: BASOPHILS % 0.2 % (0.0-2.0); EOSINOPHILS # 0.4 10^3/ul (0.0-0.5); EOSINOPHILS % 2.7 % (0.0-7.0); HEMATOCRIT 22.8 % (37.0-47.0); HEMOGLOBIN 7.1 g/dl (12.0-16.0); LYMPHOCYTES # 1.5 10^3/ul (0.8-2.9); LYMPHOCYTES % 10.4 % (15.0-51.0); MEAN CORPUSCULAR HGB CONC 31.1 g/dl (32.0-37.0); MEAN PLATELET VOLUME 10.4 fl (7.4-10.4); MONOCYTE # 0.7 10^3/ul (0.3-0.9); MONOCYTES % 4.8 % (0.0-11.0); NEUTROPHIL # 11.3 10^3/ul (1.6-7.5); NEUTROPHILS % 79.5 % (39.0-77.0); PLATELET COUNT 183 10^3/UL (140-415); RED BLOOD COUNT 2.96 10^6/ul (4.20-5.40); RED CELL DISTRIBUTION WIDTH 17.6 % (11.5-14.5); WHITE BLOOD COUNT 14.3 10^3/ul (4.8-10.8)
[2017-01-11 16:00] VITALS: BP 133/83; PULSE 99; RESP 16
[2017-01-11 19:50] VITALS: BP 128/59; PULSE 98; RESP 18
[2017-01-12] MEDS: LACTATED RINGER'S 1,000 ML IV SCH (00:28)
[2017-01-12 04:00] VITALS: BP 123/60; PULSE 95; RESP 17
[2017-01-12] MEDS: IBUPROFEN 800 MG TAB PO SCH (05:44)
[2017-01-12 08:00] VITALS: BP 129/62; PULSE 88; RESP 14
[2017-01-12] MEDS ORDERED: DIPHTH/TET/ACEL PERTUSS (ADULT) 0.5 ML VIAL IM* ONE (09:00)
[2017-01-12] MEDS: FERROUS SULFATE (EC) 325 MG TAB PO SCH (09:10)
[2017-01-12] MEDS: SENNA/DOCUSATE NA (8.6MG/50MG) TAB PO SCH (09:10)
--- NOTE | 2017-01-12 10:36 | PN ---
Date/Time of Note Date/Time of Note DATE: 01/12/17 TIME: 10:35 OB Subjective Subjective Subjective No complaints. Ready to go home. OB Objective Objective Objective Gen: NAD Abd: I-C/D/I OB Assessment/Plan Other Assessment: POD3 s/p Other plan: Discharge home with rx for pain meds. Pelvic rest, no heavy lifting. F/u with OB clinic for incision check and follow-up. LEONIE PARISI Jan 12, 2017 10:36
--- NOTE | 2017-01-12 10:38 | DS ---
Date/Time of Note Date/Time of Note DATE: 01/12/17 TIME: 10:36 Obstetrical Discharge Record Final Diagnosis Final Diagnosis: Term delivered Section Section: Primary Condition on Discharge Physical Assessment Last Vitals: See PN Patient Condition: Good LEONIE PARISI Jan 12, 2017 10:38
[2017-01-12] MEDS ORDERED: INFLUENZA VIRUS VACCINE 0.5 ML SYG IM* ONE (14:00)
[2017-01-13] MEDS ORDERED: INFLUENZA VIRUS VACCINE 0.5 ML SYG IM* ONE (18:00)
== END 2017-01-12 14:25 | disposition home or self-care (01) | DRG 766 ==
LOC: OBT 14:14 → L-D 14:14 → OBT 15:00 → L-D 15:00 → PP1 01-09 16:35
PROVIDERS: ADMIT Obstetrics & Gynecology; ATTEND Obstetrics & Gynecology
PROC: 10D00Z1 Extraction of Products of Conception, Low, Open Approach (ICD-10-PCS; principal; 2017-01-09 09:30)
DX: O76 Abnormality in fetal heart rate and rhythm complicating labor and delivery (principal); Z37.0 Single live birth; Z3A.40 40 weeks gestation of pregnancy
CPT/HCPCS: 36415; 36600; 80069; 80076; 80307; 81001; 82803; 84112; 84560; 85025; 85610; 85730; 86592; 86900; 86901; 88307; 90686; 90715; 94760; 99464; G0463; J0290; J0595; J0690; J1885; J2274; J2370; J2405; J2590; J2765; J3010; J7120